=== PATIENT | female | born 1980 | race Two or more races ===

== ENCOUNTER 2018-10-02 20:34 | Emergency (ER) | payer BC, OTHER ==
[2018-10-02 20:38] VITALS: BP 152/99; PULSE 116; TEMP 98.6; BMI 32.5
--- NOTE | 2018-10-02 20:52 | PDOC ---
History of Present Illness - General Chief Complaint: Vaginal Bleeding Stated Complaint: VAGINAL BLEEDING (9 WEEKS ) Time Seen by Provider: 10/02/18 20:52 - History of Present Illness Initial Comments: 38yo F A2 current 9weeks 4 days complaining of vaginal bleeding that started 1 hour prior to arrival. She states that she last saw her .net architect last and received an ultrasound that confirmed an intrauterine and heartbeat. Patient had a miscarriage s/p D&C in 2012 and "? ectopic or chemical " s/p methotrexate last summer. This was achieved with the assistance of a fertility doctor. Patients states she has noticed bright red bleeding as well as the passage of one quarter-sized clot. Has not passed any tissue. Denies having any pain. Has not had any contractions. Last bowel movement was a semi-loose stool today. No history of abdominal surgeries. Denies any trauma or urinary symptoms. No fevers or chills. Past History - Past Medical History Allergies/Adverse Reactions: Allergies Allergy/AdvReac Type Severity Reaction Status Date / Time No Known Drug Allergies Allergy Verified 10/02/18 20:38 Home Medications: Ambulatory Orders Progesterone, Micronized [Progesterone] 100 mg PO BID 10/02/18 Anemia: No Asthma: No Cancer: No Cardiac Disorders: No (07/2012-HAD CARDIAC W/U, NEGATIVE. STARTED ON PROTONIX, NOT ON ANYMORE) CVA: No COPD: No CHF: No Dementia: No Diabetes: No GI Disorders: Yes (HAS HAD GERD /IRRITABLE BOWEL IN PAST,CURRENTLY ASYMPTOMATIC) Disorders: No HTN: No Hypercholesterolemia: No Liver Disease: No Seizures: No Thyroid Disease: No - Surgical History Abdominal Surgery: No Appendectomy: No Cardiac Surgery: No Cholecystectomy: No Lung Surgery: No Neurologic Surgery: No Orthopedic Surgery: No - Reproductive History (#): 1 Para: 0 - Suicide/Smoking/Psychosocial Hx Smoking Status: No Smoking History: Never smoked Years of Tobacco Use: 2 Have you smoked in the past 12 months: No Number of Cigarettes Smoked Daily: 0 Hx Alcohol Use: No Drug/Substance Use Hx: No Substance Use Type: None Hx Substance Use Treatment: No Review of Systems - Review of Systems Comments:: Constitutional: no fever, no chills HEENT: no throat pain, no dysphagia Cardiovascular: no chest pain, no palpitations Respiratory: no cough, no shortness of breath Gastrointestinal: no abdominal pain, no nausea Genitourinary: no dysuria, +vaginal bleeding Musculoskeletal: no myalgia, no arthralgia Skin: no rash, no itching Neurologic: no headache, no dizziness *Physical Exam - Vital Signs Last Vital Signs Temp Pulse Resp BP Pulse Ox 98.6 F 116 H 18 152/99 100 10/02/18 20:36 10/02/18 20:36 10/02/18 20:36 10/02/18 20:36 10/02/18 20:36 - Physical Exam Comments: General: Awake, alert, and fully oriented, anxious Head: No signs of trauma Eyes: EOMI, sclera anicteric ENT: Dry mucus membranes Neck: Normal ROM, supple Lungs: Lungs clear, Normal breath sounds Cardio: Tachycardic, regular rhythm, S1 and S2 present Abdomen: Soft, nontender. No guarding, no rebound, no masses Extremities: Normal range of motion, Distal pulses present SKIN: Warm, Dry, normal turgor Neurologic: Cranial nerves II through XII grossly intact. Normal speech Pelvic: External genitalia without erythema, exudate or discharge. Cervix is of normal color without lesion. The os is closed. There is bleeding noted. No clots or tissue. Uterus is noted to be of appropriate size and nontender. No cervical motion tenderness is seen. The adnexa are without masses or tenderness. Moderate Sedation - Procedure Monitoring Vital Signs: Procedure Monitoring Vital Signs Temperature 98.6 F 10/02/18 20:36 Pulse Rate 116 H 10/02/18 20:36 Respiratory Rate 18 10/02/18 20:36 Blood Pressure 152/99 10/02/18 20:36 O2 Sat by Pulse Oximetry (%) 100 10/02/18 20:36 ED Treatment Course - LABORATORY CBC & Chemistry Diagram: 10/02/18 21:52 10/02/18 21:52 Medical Decision Making - Medical Decision Making 38yo F A2 current 9weeks 4 days complaining of vaginal bleeding that started 1 hour prior to arrival. DDX including but not limited to threatened , subchorionic hemorrage, ectopic CBC, CMP, UA, UCx, TVUS 1L NS B-ykw=[id number] 10/02/18 22:47 Pending UA and TVUS result 10/02/18 23:08 TVUS: Single live intrauterine gestation with average ultrasound age of approximately 9 weeks and 1 day, based on today's measurements. heart rate noted at 149 bpm. No obvious subchorionic hemorrhage. Cervix not well visualized but appears closed. Maternal ovaries appear normal with vascular flow. No significant free pelvic fluid. Patient discharged 10/03/18 00:31 *DC/Admit/Observation/Transfer Diagnosis at time of Disposition: Threatened in first trimester - Discharge Dispostion Disposition: HOME Condition at time of disposition: Stable - Referrals - Patient Instructions Printed Discharge Instructions: DI for Threatened Additional Instructions: You were seen in the Emergency Department for vaginal bleeding during . Blood work was normal. Ultrasound confirmed an intrauterine with a heartbeat. Follow-up with your .net architect in 2-3 days to discuss this ED visit and to further evaluate your symptoms. Your B-hcg level today was [id number]. Call and make an appointment. Your workup is not complete until you do so. Pelvic rest is advised until your .net architect says otherwise. Return to the Emergency Department if you experience: -heavy bleeding (more than two pads per hour for two hours) -severe pain -lightheadedness -shortness of breath -high fever -any other concerning symptoms - Post Discharge Activity
--- NOTE | 2018-10-02 20:57 | PDOC ---
Attending Attestation - HPI HPI: 10/02/18 22:09 The patient is a 9 weeks 4 day 38 year old female, who presents to the emergency department complaining of vaginal bleeding for 1 hour that began tonight. She states she saw 1 blood clot but denies any pain. Last ultrasound was done and no abnormal findings were found. The patient states she is concerned of a miscarriage and came to the ER for further evaluation. The patient denies chest pain, shortness of breath, headache and dizziness. Denies fever, chills, nausea, vomit, diarrhea and constipation.Denies dysuria, frequency, urgency and hematuria. Allergies: NKDA Past surgical history: None reported Social history: None reported PCP:None reported Documentation prepared by Tommie Steinberg, acting as pediatrician/medical doctor for Dee Starr MD. - Physicial Exam PE: 10/02/18 22:09 GENERAL: Awake, alert, and fully oriented, in no acute distress HEAD: No signs of trauma LUNGS: Breath sounds equal, clear to auscultation bilaterally. No wheezes, and no crackles HEART: Regular rate and rhythm, normal S1 and S2, no murmurs, rubs or gallops ABDOMEN: Soft, nontender, normoactive bowel sounds. No guarding, no rebound. No masses EXTREMITIES: Normal range of motion, no edema. No clubbing or cyanosis. No cords, erythema, or tenderness NEUROLOGICAL: Cranial nerves II through XII grossly intact. Normal speech, normal gait SKIN: Warm, Dry, normal turgor, no rashes or lesions noted. Documentation prepared by Tommie Steinberg, acting as pediatrician/medical doctor for Dee Starr MD. <Tommie Steinberg - Last Filed: 10/02/18 22:09> - Medical Decision Making 10/03/18 20:20 pt presents to the ED complaining of vaginal bleeding. 8 weeks by dates. Moderate amount of bleeding on pelvic exam. TRansvaginal US shows IUP with FHR. Rh positive. Will discharge home with instructions to follow up with PMD. <Dee Starr - Last Filed: 10/03/18 20:22>
[2018-10-02] MEDS ORDERED: SODIUM CHLORIDE 1,000 ML IV STA (21:28)
[2018-10-02 22:00] LABS: BASO % 0.8 % (0-2.0); EOS % 1.4 % (0-4.5); HEMATOCRIT 42.2 % (32.4-45.2); HEMOGLOBIN 14.8 GM/dL (10.7-15.3); LYMPH % 23.8 % (8-40); MCH 31.1 pg (25.7-33.7); MEAN CELL VOLUME 88.8 fl (80-96); MEAN PLT VOLUME 8.1 fl (7.5-11.1); MONO % 8.9 % (3.8-10.2); NEUT % 65.1 % (42.8-82.8); PLATELET COUNT 288 K/MM3 (134-434); RBC 4.76 M/mm3 (3.60-5.2); RDW 14.2 % (11.6-15.6); WHITE BLOOD COUNT 14.5 K/mm3 (4.0-10.0)
[2018-10-02 22:36] LABS: ALBUMIN 3.8 g/dl (3.4-5.0); ALK PHOS 54 U/L (45-117); ANION GAP 7 MMOL/L (8-16); BILIRUBIN,TOTAL 0.3 mg/dL (0.2-1); BLOOD UREA NITROGEN 9 mg/dL (7-18); CALCIUM 9.1 mg/dL (8.5-10.1); CHLORIDE 105 mmol/L (98-107); CO2 23 mmol/L (21-32); CREATININE 0.7 mg/dL (0.55-1.3); GLUCOSE,RANDOM 88 mg/dL (74-106); POTASSIUM 4.3 mmol/L (3.5-5.1); SGOT/AST 17 U/L (15-37); SGPT/ALT 21 U/L (13-61); SODIUM 135 mmol/L (136-145); TOT PROT 7.6 g/dl (6.4-8.2)
[2018-10-02 23:19] LABS: URINE APPEARANCE CLEAR; URINE BILIRUBIN NEGATIVE (<2.0 mg/dL); URINE COLOR YELLOW; URINE GLUCOSE (UA) NEGATIVE (NEGATIVE); URINE KETONE NEGATIVE (NEGATIVE); URINE LEUK ESTERASE NEGATIVE (NEGATIVE); URINE NITRITE NEGATIVE (NEGATIVE); URINE PROTEIN NEGATIVE (NEGATIVE); URINE UROBILINOGEN NEGATIVE mg/dL (0.2-1.0)
[2018-10-02 23:22] LABS: EPI CELLS RARE /HPF (FEW); URINE MUCUS RARE
== END 2018-10-03 00:20 | disposition home or self-care (01) ==
LOC: JER 20:34
PROC: 3E0337Z Introduction of Electrolytic and Water Balance Substance into Peripheral Vein, Percutaneous Approach (ICD-10-PCS; principal; 2018-10-02)
DX: O26.891 Other specified pregnancy related conditions, first trimester (principal); O20.0 Threatened abortion; Z3A.09 9 weeks gestation of pregnancy
CPT/HCPCS: 36415; 76801-TC; 80053; 81003; 81015; 84702; 85025; 87086; 99281-25; J7030